=== PATIENT | male | born 1955 | race Caucasian/White ===

== ENCOUNTER 2017-12-18 09:52 | Emergency (ER) | payer OTHER ==
[~2017-12-18] VITALS: Ht 175.3 cm; Wt 92.5 kg
[2017-12-18] MEDS ORDERED: LISINOPRIL40 M1 PO (11:04)
[2017-12-18 11:23] VITALS: BP 134/75
[2017-12-18] MEDS ORDERED: PROAIR HFA8.5 GM INH (11:28)
[2017-12-18] MEDS ORDERED: CHERATUSSIN AC118 M1 PO (11:28)
[2017-12-18] MEDS ORDERED: PREDNISONE20 M1 PO (11:28)
[2017-12-18] MEDS ORDERED: TAMIFLU75 M1 PO (11:28)
--- NOTE | 2017-12-18 11:30 | ED INFLUENZA/URI COMPLAINT ---
History of Present Illness General Chief Complaint: Upper Respiratory Sx/Fever Stated Complaint: FEVER,COUGH,SORENESS,CHILLS X2DAYS Source: patient, family, old records Exam Limitations: no limitations Vital Signs & Intake/Output Vital Signs & Intake/Output Vital Signs Date Time Temp Pulse Resp B/P B/P Pulse O2 O2 Flow FiO2 Mean Ox Delivery Rate 12/18 1123 99.3 101 20 134/75 96 Room Air 12/18 1000 99.0 114 20 120/75 97 Room Air Allergies Coded Allergies: MDX - Cefaclor (From [facility]) (HIVES 09/28/13) Reconcile Medications Albuterol Sulfate (Proair Hfa) 90 MCG HFA.AER.AD 2 PUF INH Q4-6 PRN PRN wheezing Codeine Phosphate/Guaifenesi (Cheratussin AC Syrup) 10 MG-100 MG/5 ML LIQUID 5 -10 ML PO Q6P PRN cough Lisinopril 40 MG TABLET 1 TAB PO DAILY HEART (Reported) Oseltamivir Phosphate (Tamiflu) 75 MG CAPSULE 1 CAP PO BID influenza Prednisone 20 MG TABLET 1 TAB PO BID bronchospasm Triage Note: PT C/O FEVER, PRODUCTIVE COUGH, BODY ACHES AND CHILLS X 2 DAYS Triage Nurses Notes Reviewed? yes Onset: 2 days Timing: recent history Severity: moderate Prior Episodes/Possible Cause: illness exposure No Modifying Factors: none Associated Symptoms: cough, fever/chills, muscle aches, nasal congestion, nasal drainage HPI: 2 days prior to admission patient complains of chills myalgia anorexia body aches he has a congestion productive cough of clear sputum. Reports some wheezing too. He denies chest pain headache dysuria rash bleeding nausea vomiting diarrhea abdominal pain. Past History Travel History Traveled to [place] past 21 day No Medical History Any Pertinent Medical History? see below for history Cardiovascular: hypertension Surgical History Surgical History: non-contributory Psychosocial History What is your primary language Gabonese Tobacco Use: Current Daily Use Daily Tobacco Use Amount/Type: => 5 Cigarettes daily ETOH Use: occasional use Illicit Drug Use: denies illicit drug use Family History Hx Contributory? No Review of Systems Review of Systems Constitutional: Reports: see HPI, malaise. EENTM: Reports: see HPI, nasal congestion. Respiratory: Reports: see HPI, cough, sputum production, wheezing. Cardiovascular: Reports: no symptoms. GI: Reports: no symptoms. Genitourinary: Reports: no symptoms. Musculoskeletal: Reports: no symptoms. Skin: Reports: no symptoms. Neurological/Psychological: Reports: no symptoms. Hematologic/Endocrine: Reports: no symptoms. Immunologic/Allergic: Reports: see HPI, lymphadenopathy. All Other Systems: Reviewed and Negative Physical Exam Physical Exam General Appearance: well developed/nourished, alert, awake, anxious, comfortable , obese Head: atraumatic, normal appearance Eyes: Bilateral: normal appearance, PERRL, EOMI. Ears, Nose, Throat: moist mucous membrane, nasal congestion, nasal drainage, pharyngeal erythema Neck: normal inspection, supple, full range of motion, trachea midline, lymphadenopathy (R), lymphadenopathy (L) Respiratory: chest non-tender, no respiratory distress, quiet respiration, wheezing Cardiovascular: regular rate/rhythm, normal peripheral pulses, norml femoral pulses equa Peripheral Pulses: 4+ carotid (R), 4+ carotid (L) Gastrointestinal: normal bowel sounds, soft, non-tender, no organomegaly Back: normal inspection, normal range of motion, no vertebral tenderness Extremities: normal inspection, normal capillary refill, normal range of motion, no edema Neurologic/Psych: no motor/sensory deficits, awake, alert, oriented x 3, normal gait, normal mood/affect, 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 Skin: intact, normal color, warm/dry Lymphatic: adenopathy Core Measures Sepsis Present: No Sepsis Focused Exam Completed? No Progress Differential Diagnosis: influenza, otitis, sinusitis Plan of Care: Orders Procedure Date/time Status RAPID VIRAL INFLUENZA A 12/18 1003 Complete VIRAL CULTURE 12/18 1003 Active Current Medications Sig/Vignesh Start time Last Medication Dose Stop Time Status Admin Oseltamivir Phosphate 75 MG ONCE ONE 12/18 1130 UNVr (Tamiflu 75MG) 12/18 1131 Laboratory Tests 12/18/17 1003: Virus Culture Pending Microbiology 12/18 1006 NASOPHARYN: Influenza Virus A & B Rapid Smear - COMP INFLUENZA TYPE A Initial ED EKG: none Departure Departure Time of Disposition: 1125 Disposition: HOME OR SELF CARE Condition: Stable Clinical Impression Primary Impression: Influenza A Referrals: Shantel ALTAMIRANO,Dustin Yung (PCP/Family) Departure Forms: Customer Survey General Discharge Information Prescriptions: Current Visit Scripts Oseltamivir Phosphate (Tamiflu) 1 CAP PO BID #10 CAP Codeine Phosphate/Guaifenesi (Cheratussin AC Syrup) 5-10 ML PO Q6P PRN cough #240 ML Albuterol Sulfate (Proair Hfa) 2 PUF INH Q4-6 PRN PRN wheezing #1 INHAL Prednisone 1 TAB PO BID #10 TAB
== END 2017-12-18 11:42 ==
LOC: ERH 09:52
DX: J10.1 Influenza due to other identified influenza virus with other respiratory manifestations (principal); F17.210 Nicotine dependence, cigarettes, uncomplicated
CPT/HCPCS: 87804; 87804-59